=== PATIENT | female | born 1950 | race Caucasian/White ===

== ENCOUNTER 2016-11-05 05:05 | Observation (INO) ==
[2016-11-05] MEDS ORDERED: IOPAMIDOL 100 ML BOTTLE IV ONE (05:06)
[2016-11-05] MEDS ORDERED: 0.9 % SODIUM CHLORIDE 1,000 ML IV ONE (05:07)
[2016-11-05] MEDS ORDERED: METOPROLOL TARTRATE 5 MG/5 ML VIAL IV ONE ×2 (05:10→05:24)
[2016-11-05] MEDS ORDERED: DILTIAZEM 120 MG CAP.XL.24H PO ONE ×2 (05:35→06:59)
--- NOTE | 2016-11-05 05:38 | Emergency Department Note ---
Arrhythmia/Palpitations HPI - General Chief Complaint: Arrhythmia/Palpitations Stated Complaint: palpitations Time Seen by Provider: 11/05/16 05:07 Source: patient Mode of arrival: ambulatory Limitations: no limitations - History of Present Illness HPI Narrative: 66-year-old female started having palpitations at approximately 11:30 PM or about 6-1/2 hours prior to arrival. She has known history of frequent paroxysmal atrial fibrillation and does take Cardizem to control that. Some chest pain and shortness of breath since starting. She is already on Coumadin and aspirin. She is from [place] and is visiting - Related Data Home Medications Medication Instructions Recorded Confirmed Ascorbic Acid [Vitamin C] 1,000 mg PO QDAY 11/05/16 11/05/16 Aspirin 81 mg PO QDAY 11/05/16 11/05/16 Atorvastatin [Lipitor] 40 mg PO ONCE 11/05/16 11/05/16 Diltiazem [Cardizem Cd] 120 mg PO DAILY 11/05/16 11/05/16 Ergocalciferol (Vitamin D2) 2,000 unit PO QDAY 11/05/16 11/05/16 [Vitamin D2] Gabapentin [Neurontin] 300 mg PO ONCE 11/05/16 11/05/16 LORazepam [Ativan] 0.5 mg PO HS 11/05/16 11/05/16 Losartan [Cozaar] 100 mg PO QDAY 11/05/16 11/05/16 OXcarbazepine [Oxtellar Xr] 300 mg PO QDAY 11/05/16 11/05/16 Warfarin [Coumadin] 2 mg PO DAILY 11/05/16 11/05/16 Allergies Allergy/AdvReac Type Severity Reaction Status Date / Time ciprofloxacin [From Cipro] Allergy Unknown Verified 11/05/16 05:11 nitrofurantoin Allergy Unknown Verified 11/05/16 05:11 [From Macrobid] Penicillins Allergy Unknown Verified 11/05/16 05:11 sulfamethoxazole Allergy Unknown Verified 11/05/16 05:11 [From Bactrim] trimethoprim [From Bactrim] Allergy Unknown Verified 11/05/16 05:11 Review of Systems All systems ED: reviewed and negative except as stated. Past Medical History - Past Medical History Attestation: Yes: The following information was validated with the patient. Medical history: Reports: atrial fibrillation, hypertension, TIA Surgical history ED: Reports: cholecystectomy, thyroidectomy (Partial) - Social History smoking status: Never smoker Physical Exam Thin female. Normocephalic atraumatic. Conjunctive are clear sclerae nonicteric. No nasal discharge or congestion. Oropharynx pink and moist. Neck is supple without lymphadenopathy or thyromegaly. Heart is irregularly irregular rhythm with tachycardia. Lungs are clear to auscultation bilaterally without wheezes rales rhonchi or respiratory distress. Abdomen is soft nontender nondistended. Pedal edema. +2 radial pulse. Alert oriented no dysarthria ataxia or tremor - General Limitations: no limitations Course Vital Signs Temperature 97.1 F 11/05/16 05:06 Pulse Rate 149 H 11/05/16 05:06 Respiratory Rate 20 11/05/16 05:06 Blood Pressure 138/115 11/05/16 05:06 Pulse Oximetry (%) 100 11/05/16 05:06 Temperature 97.1 F 11/05/16 05:06 Pulse Rate 127 H 11/05/16 08:16 Respiratory Rate 21 11/05/16 08:16 Blood Pressure 130/112 11/05/16 08:16 Pulse Oximetry (%) 95 11/05/16 08:16 Arrhythmia/Palpitations - Lab Data Lab results reviewed: Yes I reviewed the patient's lab results. Result diagrams: 11/05/16 05:07 11/05/16 05:07 Lab Results 11/05/16 11/05/16 11/05/16 Range/Units 05:07 05:07 05:08 WBC 9.6 (4.5-11.0) K/mcL RBC 4.99 (4.00-5.20) M/mcL Hgb 15.7 H (12.0-15.0) g/dL Hct 45.7 (36.0-48.0) % MCV 91.6 (80.0-100.0) fL MCH 31.5 (26.0-34.0) pg MCHC 34.4 (31.0-36.0) g/dL RDW 13.0 (11.5-14.5) % Plt Count 356 (140-440) K/mcL MPV 7.5 (7.4-10.4) fL Gran % 79.4 H (38.0-78.0) % Lymph % (Auto) 11.8 L (15.5-49.0) % [place] % (Auto) 7.8 (1.0-12.0) % Eos % (Auto) 0.8 (0.0-7.0) % Baso % (Auto) 0.2 (0.0-2.0) % Gran # 7.6 (1.8-8.0) K/mcL Lymph # (Auto) 1.1 L (1.5-4.8) K/mcL [place] # (Auto) 0.7 (0.1-0.9) K/mcL Eos # (Auto) 0.1 (0.0-0.7) K/mcL Baso # (Auto) 0 (0.0-0.3) K/mcL PT 25.9 H (11.9-14.5) sec INR 2.3 H (0.9-1.1) Sodium 130 L (133-145) mmol/L Potassium 3.9 (3.3-5.1) mmol/L Chloride 91 L (96-108) mmol/L Carbon Dioxide 25 (22-30) mmol/L Anion Gap 14.0 (8-16) BUN 12 (8-23) mg/dl Creatinine 0.6 (0.6-1.1) mg/dl GFR Calculation 94 Glucose 135 H (70-105) mg/dL Calcium 9.5 (8.6-10.4) mg/dl Magnesium 2.2 (1.6-2.5) mg/dL Total Bilirubin 0.4 (0.0-1.0) mg/dL AST 25 (0-37) U/l ALT 22 (0-40) U/l Alkaline Phosphatase 126 H (39-117) U/L Troponin T (0-0.03) ng/ml Total Protein 7.6 (5.9-8.4) gm/dL Albumin 4.6 (3.2-5.2) gm/dL Globulin 3.0 (2.2-3.7) gm/dL Albumin/Globulin Ratio 1.5 (1.0-2.3) TSH 2.14 (0.27-5.01) uIU/ml 11/05/16 11/05/16 Range/Units 05:08 07:55 WBC (4.5-11.0) K/mcL RBC (4.00-5.20) M/mcL Hgb (12.0-15.0) g/dL Hct (36.0-48.0) % MCV (80.0-100.0) fL MCH (26.0-34.0) pg MCHC (31.0-36.0) g/dL RDW (11.5-14.5) % Plt Count (140-440) K/mcL MPV (7.4-10.4) fL Gran % (38.0-78.0) % Lymph % (Auto) (15.5-49.0) % [place] % (Auto) (1.0-12.0) % Eos % (Auto) (0.0-7.0) % Baso % (Auto) (0.0-2.0) % Gran # (1.8-8.0) K/mcL Lymph # (Auto) (1.5-4.8) K/mcL [place] # (Auto) (0.1-0.9) K/mcL Eos # (Auto) (0.0-0.7) K/mcL Baso # (Auto) (0.0-0.3) K/mcL PT (11.9-14.5) sec INR (0.9-1.1) Sodium (133-145) mmol/L Potassium (3.3-5.1) mmol/L Chloride (96-108) mmol/L Carbon Dioxide (22-30) mmol/L Anion Gap (8-16) BUN (8-23) mg/dl Creatinine (0.6-1.1) mg/dl GFR Calculation Glucose (70-105) mg/dL Calcium (8.6-10.4) mg/dl Magnesium (1.6-2.5) mg/dL Total Bilirubin (0.0-1.0) mg/dL AST (0-37) U/l ALT (0-40) U/l Alkaline Phosphatase (39-117) U/L Troponin T 0.01 0.03 (0-0.03) ng/ml Total Protein (5.9-8.4) gm/dL Albumin (3.2-5.2) gm/dL Globulin (2.2-3.7) gm/dL Albumin/Globulin Ratio (1.0-2.3) TSH (0.27-5.01) uIU/ml - Radiology Data Radiology results reviewed: Yes I reviewed the patient's radiology results. Chest x-ray shows no acute cardiopulmonary pathology - EKG Data EKG attestation: Yes I reviewed and interpreted this EKG. EKG results narrative: EKG shows rate of 150 atrial fibrillation with rapid ventricular response Disposition Pt seen by CORPORATE EVENT PLANNER/PA only: No Clinical Impression: Atrial fibrillation with rapid ventricular response Summary: Started workup with chest x-ray EKG and laboratory. Given metoprolol 5 mg push 2 without much effect on her atrial fibrillation with rapid ventricular response. Then repeated her 120 mg home dose of Cardizem extended release which did help bring her heart rate down into the 120s and 130s as well as controlling her blood pressure better. Most of her chest pain and pressure resolved as well as her neck pain and soreness. Her heart rate began creeping up some and so she is given another dose for a total of 240 mg extended release Cardizem. At this point I discussed the case with Dr. Byrd the hospitalist who felt that we should repeat the troponin. He was otherwise willing to accept patient for further care in the hospital Disposition: Xfer As Inpt ([facility]) Condition: Serious Referrals: No,PCP [Referring] -
--- NOTE | 2016-11-05 05:55 | XRay Report ---
INDICATION: Dysrhythmia TECHNIQUE: AP semiupright chest x-ray COMPARISON: Chest CT scan dated 10/16/2011. Chest x-ray dated 10/16/2011 FINDINGS:Lungs are negative. No parenchymal infiltrate or mass. Heart size and configuration are normal. Pulmonary vascularity is normal. No pulmonary congestion. No pulmonary edema. Zoe and mediastinum are negative. No pleural fluid. No interval change IMPRESSION: Negative AP chest x-ray. No acute abnormality or interval change Interpreted and Authenticated by: Chris Bean 11/05/16
[2016-11-05 06:10] LABS: Basophils # (Auto) 0 K/mcL (0.0-0.3); Basophils % (Auto) 0.2 % (0.0-2.0); Eosinophils # (Auto) 0.1 K/mcL (0.0-0.7); Eosinophils % (Auto) 0.8 % (0.0-7.0); Granulocytes % (Auto) 79.4 % (38.0-78.0); Lymphocytes # (Auto) 1.1 K/mcL (1.5-4.8); Lymphocytes % (Auto) 11.8 % (15.5-49.0); Mean Cell Volume 91.6 fL (80.0-100.0); Mean Corpuscular HGB Conc 34.4 g/dL (31.0-36.0); Mean Corpuscular Hemoglobin 31.5 pg (26.0-34.0); Monocytes # (Auto) 0.7 K/mcL (0.1-0.9); Monocytes % (Auto) 7.8 % (1.0-12.0); Platelet Count 356 K/mcL (140-440); RBC 4.99 M/mcL (4.00-5.20)
[2016-11-05 06:35] LABS: ALT/SGPT 22 U/l (0-40); Albumin 4.6 gm/dL (3.2-5.2); Albumin/Globulin Ratio 1.5 (1.0-2.3); Alkaline Phosphatase 126 U/L (39-117); Blood Urea Nitrogen 12 mg/dl (8-23); Magnesium 2.2 mg/dL (1.6-2.5)
[2016-11-05] MEDS ORDERED: DILTIAZEM 25 MG/5 ML VIAL IV ONE ×2 (10:31→10:36)
[2016-11-05] MEDS ORDERED: ASPIRIN 325 MG ENTERIC COATED TABLET PO ONE ×2 (11:00)
[2016-11-05] MEDS ORDERED: NITROGLYCERIN 0.4 MG TAB.SUBL SL PRN (11:15)
[2016-11-05] MEDS ORDERED: ACETAMINOPHEN 325 MG TABLET PO PRN (11:15)
[2016-11-05] MEDS ORDERED: ONDANSETRON 4 MG/2 ML VIAL IV PRN (11:15)
[2016-11-05] MEDS ORDERED: NALOXONE HCL 0.4 MG/ML VIAL IV PRN (11:15)
[2016-11-05] MEDS ORDERED: MAGNESIUM HYDROXIDE 30 ML ORAL.SUSP PO PRN (11:15)
[2016-11-05] MEDS ORDERED: IPRATROPIUM/ALBUTEROL 3 ML AMPUL.NEB NEB PRN (11:15)
--- NOTE | 2016-11-05 11:15 | Cat Scan Report ---
CLINICAL INFORMATION: Chest pain. Possible aortic dissection. COMPARISON: Chest x-ray dated 11/05/2016 TECHNIQUE: Axial images obtained through the chest. 80 mL intravenous contrast administration was administered, and scanning was performed during pulmonary arterial phase. Sagittally and coronally reformatted images were obtained. MIP reformatted images. FINDINGS: Lungs are negative. No parenchymal infiltrate or mass. No emphysema. No bronchiectasis. No honeycombing. No focal acute abnormality. Main pulmonary artery, right pulmonary, left pulmonary artery are negative. No intraluminal filling defects. No lobar, segmental, or subsegmental abnormalities. No pulmonary embolism. Thoracic aorta is negative. Cross-sectional diameter of the ascending thoracic aorta measures 3.5 cm. This is within normal limits. No aneurysmal dilatation. No dissection. There is mild calcified atherosclerotic plaque in the aortic arch. Incidental note is made of a separate origin of the left vertebral artery. This is a normal variant. Previous left thyroidectomy. No supraclavicular or axillary adenopathy. Images of the upper abdomen are negative. Previous cholecystectomy. No thoracic compression fractures. There are changes of degenerative disc disease. No rib or sternal lesions. IMPRESSION: 1. Negative pulmonary CTA. No pulmonary embolism 2. Negative thoracic aorta. No aneurysmal dilatation. No dissection. 3. Negative chest CT scan. Interpreted and Authenticated by: Chris Bean 11/05/16
[2016-11-05] MEDS ORDERED: METHOCARBAMOL 500 MG TABLET PO PRN (11:54)
[2016-11-05] MEDS: PANTOPRAZOLE 40 MG TABLET PO SCH (11:56)
[2016-11-05] MEDS: 0.9 % SODIUM CHLORIDE 1,000 ML IV SCH ×2 (11:57→21:03)
[2016-11-05] MEDS: DILTIAZEM 125 MG in 0.9 % SODIUM CHLORIDE 100 ML IV SCH ×2 (12:39→23:58)
[2016-11-05] MEDS ORDERED: WARFARIN 2 MG TABLET PO SCH (14:00)
[2016-11-05] MEDS ORDERED: WARFARIN 10 MG TABLET PO SCH (14:00)
--- NOTE | 2016-11-05 14:18 | Internal Med History&Physical ---
Medical - H&P: HPI Patient information: Note initiated : 11/05/16 at 2:12 pm Service Date, if different from initiated Date: [] Patient: Junie Pascual a 66 y/o F admitted on 11/05/16 for Palpitations. Chief Complaint: [] History of present illness: Ms. Pascual is a 66 year old Female with h/o afib, and a resident of [facility] who is here for a family event, presents to the ER today early in the AM with complaints of chest pain and palpitations which started since 11 Pm last night. According to the patient her symptoms started all of a sudden at around 11pm, sharp pain retrosternal radiating to the back and both arms, severe constant, no aggravating or relieving factors. this was associated with palpitatinos and some dizziness. She has h/o Afib in the past but thinks she has not had her symtoms as severe as during this time. She also found that she had some weakness and was not able to ambulate well. She also had some nausea, and shortness of breath accompanying her symptoms. She noted some cramping in her legs which is a chr issue but is now bothering her a lot. She presented to the ER with these symptoms, CXR was negative, labs unremarkable , hr was elevated to 140.s and she had elevated bp. She was given cardizem iv, metoprolol IV and home dose of cardizem with no improvement in symptoms, EKG did not show any acute ST elevation, only afib with rvr. Her trop on presentatin was < 0.01. She was admitted to the hospital for further management. CTA done to r/o any aortic dissection was negative, repeat trop is 0.03 and 0.04 which is thought to be due to troponin leak. She is on coumadin with therapeutic INR, she is also on ASA. All systems: reviewed and no additional remarkable complaints except as stated ( as per HPI) Medical - H&P: PMH Medical history: Afib x 6 yrs Seizure disorder HTN HLD TIA/ cva this year x 2 no residual weakness Chr leg cramps Surgical history: h/o cholecystectomy h/o hemithyroidectomy h/o ankle surgery. Pertinent family history: father with lung ca mom at age 86 with heart trouble siblings have htn, and afib Sister also has chf. Social history: denies smoking, rate etoh, denies recreational drugs. Medical - H&P: Meds Home Medications Medication Instructions Recorded Confirmed Type Ascorbic Acid [Vitamin C] 1,000 mg PO QDAY 11/05/16 11/05/16 History Aspirin 81 mg PO QDAY 11/05/16 11/05/16 History Atorvastatin [Lipitor] 40 mg PO ONCE 11/05/16 11/05/16 History Diltiazem [Cardizem Cd] 120 mg PO DAILY 11/05/16 11/05/16 History Ergocalciferol (Vitamin D2) 2,000 unit PO QDAY 11/05/16 11/05/16 History [Vitamin D2] Gabapentin [Neurontin] 300 mg PO ONCE 11/05/16 11/05/16 History LORazepam [Ativan] 0.5 mg PO HS 11/05/16 11/05/16 History Losartan [Cozaar] 100 mg PO QDAY 11/05/16 11/05/16 History OXcarbazepine [Oxtellar Xr] 300 mg PO QDAY 11/05/16 11/05/16 History OXcarbazepine [Trileptal] 600 mg PO HS 11/05/16 11/05/16 History Warfarin [Coumadin] 2 mg PO DAILY 11/05/16 11/05/16 History Allergies Allergy/AdvReac Type Severity Reaction Status Date / Time ciprofloxacin [From Cipro] Allergy Unknown Verified 11/05/16 05:11 nitrofurantoin Allergy Unknown Verified 11/05/16 05:11 [From Macrobid] Penicillins Allergy Unknown Verified 11/05/16 05:11 sulfamethoxazole Allergy Unknown Verified 11/05/16 05:11 [From Bactrim] trimethoprim [From Bactrim] Allergy Unknown Verified 11/05/16 05:11 Medical - H&P: Exam - Constitutional Vitals: Temp Pulse Resp BP Pulse Ox 98.2 F 85 16 129/79 100 11/05/16 11:15 11/05/16 11:15 11/05/16 11:15 11/05/16 11:15 11/05/16 11:15 Exam: GENERAL: The patient is a well-developed, well-nourished in no apparent distress. Is alert and oriented x3. VITAL SIGNS: Reviewed and as noted elsewhere. HEENT: Head is normocephalic and atraumatic. Extraocular muscles are intact. Pupils are equal, round, and reactive to light. Nares appeared normal. Mouth appears any without lesions. Mucous membranes are dry NECK: Normal to inspection, Supple, No lymphadenopathy or thyromegaly. LUNGS: Air entry equal on both sides, no wheezing, crackles or rhonchi noted. No accessory muscles of respiration HEART: tachycardic rate and rhythm irregular , S1 and S2 heard, no Gallop, S3 or Rub Noted, No Gross murmur heard. ABDOMEN: Soft, nontender, and nondistended. Positive bowel sounds. No hepatosplenomegaly was noted. EXTREMITIES: No cyanosis, clubbing, rash, lesions or edema. puneet pedal pulses palpable, dorsalis pedalis. NEUROLOGIC: Cranial nerves II through XII are grossly intact. Motor and Sensory System Grossly Intact PSYCHIATRIC: Normal affect, Normal Mood. Appropriate Behavior. SKIN: No ulceration or wounds noted, No jaundice, No rash noted. Medical - H&P: Reslt - Labs CBC & Chem 7: 11/05/16 05:07 11/05/16 05:07 Labs: Cardiac Enzymes 11/05/16 Range/Units 11:23 Troponin T 0.04 H* (0-0.03) ng/ml - EKG Data -: EKG Reviewed by Myself - EKG Data Prior EKG available for review: no Medical - H&P: A/P - Narrative A/P Narrative: A/P Afib with RVR type 2 NSTEMI HTN HLD TIA Seizure disorder chr leg spasms. Plan IV fluids and IV Cardizem drip, Monitor on tele, increase dose of Cardizem to 240 qd (takes 120 at home) Resume home dose of atorvastatin Continue Coumadin and aspirin. INR is therapeutic continue anti seizure med methocarbamol for leg spasms. Mild elevation of troponin likely secondary to tachycardia, trend for now, on appropriate medical management. DVT Coumadin with therapeutic range Medical - H&P: Qual - Stroke Symptom Onset Unknown: No - VTE Deep Vein Thrombosis/Pulmonary Embolism Present on Admission: No
[2016-11-05] MEDS: DILTIAZEM 240 MG CAP.XL.24H PO SCH (19:16)
[2016-11-05] MEDS: GABAPENTIN 300 MG CAPSULE PO SCH (19:16)
[2016-11-05] MEDS ORDERED: Oxcarbazepine [Trileptal] 600 MG PO SCH (21:00)
[2016-11-05] MEDS ORDERED: LORazepam 0.5 MG TABLET PO SCH (21:00)
[2016-11-06 06:20] LABS: Basophils # (Auto) 0 K/mcL (0.0-0.3); Basophils % (Auto) 0.4 % (0.0-2.0); Eosinophils # (Auto) 0.1 K/mcL (0.0-0.7); Eosinophils % (Auto) 1.3 % (0.0-7.0); Granulocytes % (Auto) 58.3 % (38.0-78.0); Lymphocytes % (Auto) 30.5 % (15.5-49.0); Mean Cell Volume 92.2 fL (80.0-100.0); Mean Corpuscular HGB Conc 34.6 g/dL (31.0-36.0); Mean Corpuscular Hemoglobin 31.9 pg (26.0-34.0); Monocytes # (Auto) 0.6 K/mcL (0.1-0.9); Monocytes % (Auto) 9.5 % (1.0-12.0); Platelet Count 267 K/mcL (140-440); Red Cell Distribution Width 13.6 % (11.5-14.5)
[2016-11-06 06:29] LABS: ALT/SGPT 16 U/l (0-40); Albumin 3.3 gm/dL (3.2-5.2); Albumin/Globulin Ratio 1.7 (1.0-2.3); Alkaline Phosphatase 80 U/L (39-117); Bilirubin,Direct < 0.2 mg/dL (0.0-0.3); Blood Urea Nitrogen 14 mg/dl (8-23); Gamma Glutamyl Transpeptidase 19 U/L (5-36); Magnesium 2.1 mg/dL (1.6-2.5); Uric Acid 2.9 mg/dL (2.5-8.0)
[2016-11-06] MEDS: PANTOPRAZOLE 40 MG TABLET PO SCH (08:10)
[2016-11-06] MEDS: GABAPENTIN 300 MG CAPSULE PO SCH (08:10)
[2016-11-06] MEDS: DILTIAZEM 240 MG CAP.XL.24H PO SCH (08:10)
[2016-11-06] MEDS: ATORVASTATIN 20 MG TABLET PO SCH ×2 (08:17→10:29)
[2016-11-06] MEDS ORDERED: DILTIAZEM 240 MG CAP.XL.24H PO SCH (09:00)
[2016-11-06] MEDS ORDERED: LOSARTAN 50 MG TABLET PO SCH (09:00)
[2016-11-06] MEDS ORDERED: ASPIRIN 81 MG TAB.CHEW PO SCH (09:00)
[2016-11-06] MEDS ORDERED: GABAPENTIN 300 MG CAPSULE PO SCH ×2 (09:00→21:00)
[2016-11-06] MEDS ORDERED: OXCARBAZEPINE 300 MG PO SCH (09:00)
--- NOTE | 2016-11-06 11:07 | Discharge Summary ---
Medical - DS: Prov Patient information: Note initiated : 11/06/16 at 11:04 am Service Date, if different from initiated Date: [] Patient: Junie Pascual 66 y/o F admitted on 11/05/16 for Palpitations. Chief Complaint: [] Date of admission: 11/05/16 11:05 Discharge date: 11/06/16 Medical - DS: Meds - Discharge Medications Prescriptions: Diltiazem [Cardizem Cd] 240 mg PO DAILY #30 Active and Home Medications: Home Medications Ascorbic Acid [Vitamin C] 1,000 mg PO QDAY 11/05/16 [History Confirmed 11/05/16 Last Taken 11/04/16] Aspirin 81 mg PO QDAY 11/05/16 [History Confirmed 11/05/16 Last Taken 11/04/16] Atorvastatin [Lipitor] 40 mg PO ONCE 11/05/16 [History Confirmed 11/05/16 Last Taken 11/04/16] Ergocalciferol (Vitamin D2) [Vitamin D2] 2,000 unit PO QDAY 11/05/16 [History Confirmed 11/05/16 Last Taken 11/04/16] Gabapentin [Neurontin] 300 mg PO ONCE 11/05/16 [History Confirmed 11/05/16 Last Taken 11/04/16] LORazepam [Ativan] 0.5 mg PO HS 11/05/16 [History Confirmed 11/05/16 Last Taken 11/04/16] Losartan [Cozaar] 100 mg PO QDAY 11/05/16 [History Confirmed 11/05/16 Last Taken 11/04/16] OXcarbazepine [Oxtellar Xr] 300 mg PO QDAY 11/05/16 [History Confirmed 11/05/16 Last Taken 11/04/16] OXcarbazepine [Trileptal] 600 mg PO HS 11/05/16 [History Confirmed 11/05/16 Last Taken 11/04/16] Warfarin [Coumadin] 9 mg PO 11/05/16 [History Last Taken 11/04/16] Warfarin [Coumadin] 10 mg PO 11/05/16 [History Last Taken 11/04/16] Diltiazem [Cardizem Cd] 240 mg PO DAILY #30 11/06/16 [Rx Last Taken Unknown] Medical - DS: Hosp Hospital course: Discharge diagnosis * a. fib with RVR-managed on diltiazem drip with adequate rate control. Patient converted to sinus. Patient switched to oral igher dose cardizem at 240 daily. Adequately anticoagulated for CVA prophylaxis on Coumadin * non-ST elevation OK- troponin bump to 0.06 at peak over 18 hours from underlying demand ischemia from A. fib with RVR. however patient is has no active chest painor symptoms. She is on full dose anticoagulation in addition to aspirin and statin and ARB. recommend outpatient stress test. Patient recently had a stress test in June at [place]. Seen in follow-up with cardiology on . * hypertension on [facility]B [facility] Ms. Pascual is a 66 year old Female with h/o afib, and a resident of [facility] who is here for a family event, presents to the ER today early in the AM with complaints of chest pain and palpitations which started since 11 Pm last night. According to the patient her symptoms started all of a sudden at around 11pm, sharp pain retrosternal radiating to the back and both arms, severe constant, no aggravating or relieving factors. this was associated with palpitatinos and some dizziness. She has h/o Afib in the past but thinks she has not had her symtoms as severe as during this time. She also found that she had some weakness and was not able to ambulate well. She also had some nausea, and shortness of breath accompanying her symptoms. She noted some cramping in her legs which is a chr issue but is now bothering her a lot. She presented to the ER with these symptoms, CXR was negative, labs unremarkable , hr was elevated to 140.s and she had elevated bp. She was given cardizem iv, metoprolol IV and home dose of cardizem with no improvement in symptoms, EKG did not show any acute ST elevation, only afib with rvr. Her trop on presentatin was < 0.01. She was admitted to the hospital for further management. CTA done to r/o any aortic dissection was negative, repeat trop is 0.03 and 0.04 which is thought to be due to troponin leak. She is on coumadin with therapeutic INR, she is also on ASA. 11/06-atient converted to sinus. iltiazem dose increased from 120-240. Discharging with advise to follow-up with cardiology and repeat stress test in light of mild elevation and cardiac troponins to 0.06 at peak over 18 hours serial trending which was likely result of A. fib with RVR. atient is asymptomatic and requesting discharge. Instructions as below Discharge diagnosis: A. fib with RVR - Time Spent with Patient Total time spent providing and/or coordinating discharge services: Greater than 30 minutes Medical - DS: Exam - Constitutional Vitals: Vital Signs Temp Pulse Pulse Resp BP BP Pulse Ox 11/06/16 04:01 97.0 F 16 113/59 97 11/06/16 00:01 98.2 F 18 116/55 98 11/05/16 20:01 139/70 11/05/16 19:48 178/75 11/05/16 19:46 97.8 F 20 178/75 100 11/05/16 16:35 100 11/05/16 16:22 97.9 F 20 127/80 98 11/05/16 13:45 131/76 99 11/05/16 13:44 131/88 100 11/05/16 13:35 108/83 11/05/16 13:25 133/111 100 11/05/16 13:07 133/91 99 11/05/16 12:00 98.2 F 16 129/79 100 11/05/16 11:15 98.2 F 85 16 129/79 100 11/05/16 11:14 98.2 F 133 H 20 129/79 100 Intake and Output 11/05/16 11/06/16 11/06/16 21:59 05:59 13:59 Intake Total 1247 / 1247 360 / 360 Output Total 100 / 100 Balance 1147 / 1147 360 / 360 Intake: IV 947 / 947 Sodium Chloride 0.9% 1, 910 / 910 000 ml @ 100 mls/hr IV . Q10H LANDRY Rx#:[id number] Cardizem 125 mg In Sodium 37 / 37 Chloride 0.9% 100 ml @ 5 MG/HR 5 mls/hr IV Q12H LANDRY Rx#:[id number] Oral 300 / 300 360 / 360 Output: Void Amount 100 / 100 Other: Meal Dinner Breakfast Percent of Meal Consumed 75% 75% Feeding Ability Assist with Tray Set Up Assist with Tray Set Up # Bowel Movements 0 Weight 117 lb 11.2 oz Medical - DS: Data Labs on day of discharge: Labs from last 24 hours 11/06/16 11/06/16 11/06/16 04:30 04:30 04:30 WBC 6.5 RBC 3.80 L Hgb 12.1 Hct 35.0 L MCV 92.2 MCH 31.9 MCHC 34.6 RDW 13.6 Plt Count 267 MPV 7.3 L Gran % 58.3 Lymph % (Auto) 30.5 [place] % (Auto) 9.5 Eos % (Auto) 1.3 Baso % (Auto) 0.4 Gran # 3.8 Lymph # (Auto) 2.0 [place] # (Auto) 0.6 Eos # (Auto) 0.1 Baso # (Auto) 0 PT 30.1 H INR 2.7 H Sodium 142 Potassium 4.0 Chloride 110 H Carbon Dioxide 24 Anion Gap 8.0 BUN 14 Creatinine 0.6 GFR Calculation 94 Glucose 90 Uric Acid 2.9 Calcium 8.4 L Phosphorus 3.2 Magnesium 2.1 Total Bilirubin 0.2 Direct Bilirubin < 0.2 GGT 19 AST 18 ALT 16 Alkaline Phosphatase 80 Lactate Dehydrogenase 178 Troponin T Total Protein 5.3 L Albumin 3.3 Globulin 2.0 L Albumin/Globulin Ratio 1.7 Triglycerides 91 TSH 11/05/16 11/05/16 11/05/16 17:55 11:23 11:23 WBC RBC Hgb Hct MCV MCH MCHC RDW Plt Count MPV Gran % Lymph % (Auto) [place] % (Auto) Eos % (Auto) Baso % (Auto) Gran # Lymph # (Auto) [place] # (Auto) Eos # (Auto) Baso # (Auto) PT INR Sodium Potassium Chloride Carbon Dioxide Anion Gap BUN Creatinine GFR Calculation Glucose Uric Acid Calcium Phosphorus Magnesium Total Bilirubin Direct Bilirubin GGT AST ALT Alkaline Phosphatase Lactate Dehydrogenase Troponin T 0.06 H* 0.04 H* Total Protein Albumin Globulin Albumin/Globulin Ratio Triglycerides TSH 0.96 Medical - DS: A/P - Patient/Caregiver Discharge Instructions Activity: increase activity as tolerated Diet: Regular Diet Additional Instructions: Follow-up cardiology in 5-7 days Recommend outpatient stress test in 1 week increased dose of Cardizem to 240 daily I recommend Primary care physician to check CBC BMP UA as a posthospital follow- up and Chest x-ray in 1 week. 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 Side effect may include mild to severe reaction including lightheadedness/low heart rate which can be prevented by close follow-up with PCP and monitoring for side effects Refrain from smoking and alcohol Continue diet and activity as advised Discussed importance of medication adherence Please review medication list with patient prior to discharge Please schedule follow-up with PCP/Providers prior to discharge and provide printouts Portions of this chart may have been created with [employer] voice recognition software. Occasional wrong-word or ?sound-like? substitutions may have occurred due to the inherent limitations of voice recognition software. Please read the chart carefully and recognize, using context, where the substitutions have occurred. CC- PCP Prescriptions: Diltiazem [Cardizem Cd] 240 mg PO DAILY #30 - Follow up Plan Follow up with: No,PCP [Referring] - Disposition: Home, Self-Care Prognosis: Fair Rehab Potential: Fair I certify that the patient requires SNF services: No Overall status at discharge: patient is back to baseline Medical - DS: Qual - VTE Deep Vein Thrombosis/Pulmonary Embolism Present on Admission: No
[2016-11-06] MEDS ORDERED: WARFARIN 5 MG TABLET PO ONE (14:00)
[2016-11-06] MEDS ORDERED: WARFARIN 3 MG TABLET PO SCH (14:00)
== END 2016-11-06 14:34 | disposition home or self-care (01) ==
LOC: ED 05:05 → ICU 05:05
PROVIDERS: ADMIT Internal Medicine; ATTEND Internal Medicine